=== PATIENT | female | born 1975 | race Caucasian/White ===

== ENCOUNTER → 2016-07-28 | Outpatient (CLI) | payer OTHER ==
[2016-07-28 11:59] LABS: Basophils # (A) 0.1 k/uL (0-0.2); Basophils % (A) 1 %; CH 27.9; CHCM 32.3; Eosinophils # (A) 0.3 k/uL (0-0.7); Eosinophils % (A) 4 %; HCT 41.5 % (34.0-46.0); HDW 2.26; HGB 13.2 gm/dL (11.4-16.0); Luc # (Auto) 0.16; Luc % (Auto) 2; Lymphocytes # (A) 1.5 k/uL (1.0-4.8); Lymphocytes % (A) 17 %; MCH 27.6 pg (25.0-35.0); MCHC 31.9 g/dL (31.0-37.0); MCV 86.7 fL (80.0-100.0); Mean Platelet Volume 6.7; Monocytes # (A) 0.4 k/uL (0-1.0); Monocytes % (A) 5 %; Neutrophils # (A) 6.2 k/uL (1.3-7.7); Neutrophils % (A) 72 %; RBC 4.78 m/uL (3.80-5.40); RDW 14.1 % (11.5-15.5); WBC 8.7 k/uL (3.8-10.6); WBC (Perox) 8.68
[2016-07-28 12:57] LABS: ALT 27 U/L (9-52); AST 23 U/L (14-36); Alkaline Phosphatase 70 U/L (38-126); Anion Gap 8 mmol/L; Blood Urea Nitrogen 19 mg/dL (7-17); Calcium 9.5 mg/dL (8.4-10.2); Carbon Dioxide 28 mmol/L (22-30); Chloride 105 mmol/L (98-107); Glucose 88 mg/dL (74-99); Non-African American GFR(MDRD) >60 (>60 ml/min/1.73 sqM); Potassium 4.3 mmol/L (3.5-5.1); Sodium 141 mmol/L (137-145); Total Bilirubin 0.9 mg/dL (0.2-1.3); Total Protein 7.4 g/dL (6.3-8.2)
[2016-07-28 13:44] LABS: Vitamin B12 383 pg/mL (239-931)
== END | disposition home or self-care (01) ==
LOC: LAB 11:34
PROVIDERS: ATTEND Nurse Practitioner Acute Care
DX: G35 Multiple sclerosis (principal)
CPT/HCPCS: 80053; 82306; 82607; 84439; 84443; 84481; 85025

== ENCOUNTER → 2016-08-14 | Outpatient (CLI) | payer OTHER ==
--- NOTE | 2016-08-14 23:04 | MR ---
EXAMINATION TYPE: MR lumbar wo con DATE OF EXAM: 08/14/2016 2:39 PM COMPARISON: NONE HISTORY: Low back pain, numbness and burning on left side, tingling in feet, legs and hips, MS TECHNIQUE: T1 and T2 axial and sagittal images of the lumbar spine are submitted. FINDINGS: There is no abnormal signal seen within the visualized spinal cord or paraspinal soft tissu es. At L1-2 there is no disc herniation or canal stenosis. No foraminal encroachment. At L2-3 there is no disc herniation or canal stenosis. No foraminal encroachment At L3-4 there is mild circumferential disc bulging with mild bilateral foraminal encroachment. No can al stenosis or focal lesion. At L4-5 there is mild hypertrophic change of the facets and ligamentum flavum but no disc herniation or canal stenosis. Neural foramina patent. At L5-S1 there is mild disc desiccation and degenerative disc disease with mild to moderate facet art hropathy. Mild bilateral foraminal encroachment but no canal stenosis or focal herniation. IMPRESSION: 1. Mild degenerative disc disease L5-S1 with hypertrophic facet changes and mild bilateral foraminal attachment. No focal disc herniation or canal stenosis. 2. Mild circumferential disc bulging L3-L4 with mild bilateral foraminal encroachment. EXAMINATION TYPE: MR cervical spine wo con DATE OF EXAM: 08/14/2016 2:39 PM COMPARISON: 07/22/2014, 03/06/2015 HISTORY: Low back pain, numbness and burning on left side, tingling in feet, legs and hips, MS TECHNIQUE: T1 sagittal and coronal, T2 sagittal, and gradient echo axial views of the cervical spine are submitted. FINDINGS: The cranial cervical junction is preserved. There is abnormal signal within the spinal cor d on the right lateral margin C3 and C3-4. At C2-3 there is no disc herniation or canal stenosis. No foraminal encroachment At C3-4 there is no disc herniation or canal stenosis. No foraminal encroachment At C4-5 there is no disc herniation or canal stenosis. No foraminal encroachment At C5-6 there is mild bilateral uncovertebral joint hypertrophy. There is mild bilateral foraminal en croachment and a central and left paracentral broad-based disc protrusion. At C6-7 there is no disc herniation or canal stenosis. No foraminal encroachment At C7-T1 there is no disc herniation or canal stenosis. No foraminal encroachment IMPRESSION: 1. Abnormal signal at the C3-C4 level right lateral margin of the spinal cord suggestive of myelitis . Faint area of abnormal signal at the C1 level on the right also suspected and suggestive of additio nal area of myelitis 2. Stable bilateral mild foraminal encroachment and central left paracentral broad-based disc protrus ion C5-C6. 3 suggestion of disc bulge sagittal and T2-T3 not included on axial images.
--- NOTE | 2016-08-14 23:05 | MR ---
MRI of the brain with and without contrast HISTORY: MS. COMPARISON: 03/06/2015 TECHNIQUE: T1-weighted sagittal, T2, FLAIR, and diffusion axial, postcontrast T1 axial and coronal vi ews of the brain are submitted. CONTRAST: 20 mL MultiHance FINDINGS: There is no evidence of acute ischemia. The ventricles, basal cisterns, and sulci overlying the co nvexities are consistent with the patient's age. There is no mass effect or enhancing mass. Craniocervical junction maintained. Sella turcica has a normal appearance. No evidence of cerebellopo ntine angle mass. There are moderate to severe changes of chronic sinusitis. WHITE MATTER: There are 7 focal areas of abnormal signal scattered throughout the white matter bilaterally. All alo sure less than 5 mm No lesions perpendicular to the ventricular system. No callosal lesions. There is a 3 mm area of abnormal signal in the right temporal parietal junction which is stable in size but n ow demonstrates interval enhancement. Lesion is new from previous exam. Remaining white matter lesions are stable in size, morphology and number from previous exam. IMPRESSION: 1. There is a single new 3 mm area of abnormal signal within the white matter of the right temporal p arietal junction. It does demonstrate enhancement. Correlate for active demyelinating plaque. 2. Moderate to severe chronic sinusitis.
== END | disposition home or self-care (01) ==
LOC: RADMRIMAIN 13:47
PROVIDERS: ATTEND Psychiatry & Neurology Neurology
DX: M51.26 Other intervertebral disc displacement, lumbar region (principal); M51.37 Other intervertebral disc degeneration, lumbosacral region; M53.86 Other specified dorsopathies, lumbar region; M50.222 Other cervical disc displacement at C5-C6 level; J32.9 Chronic sinusitis, unspecified; R93.0 Abnormal findings on diagnostic imaging of skull and head, not elsewhere classified; Z88.2 Allergy status to sulfonamides; Z88.5 Allergy status to narcotic agent
CPT/HCPCS: 70553; 72141; 72148; A9577

== ENCOUNTER 2018-10-28 21:24 | Emergency (ER) | payer BC, OTHER ==
[2018-10-28] MEDS ORDERED: IBUPROFEN 600 MG TAB PO STA (21:42)
[2018-10-28] MEDS ORDERED: ONDANSETRON 4 MG/2 ML VIAL IVP STA (21:42)
[2018-10-28] MEDS ORDERED: ACETAMINOPHEN TAB 500 MG TAB PO STA (21:42)
[2018-10-28] MEDS ORDERED: methylPREDNISolone SOD SUCC 1,000 MG in SODIUM CHLORIDE 0.9% 250 ML IVPB ONE (22:30)
--- NOTE | 2018-10-28 22:33 | ED ---
Fever HPI - General Chief Complaint: Fever Stated Complaint: MS complications Time Seen by Provider: 10/28/18 21:35 Source: patient Mode of arrival: ambulatory Limitations: no limitations - History of Present Illness Initial Comments: Patient is a 43-year-old female with a history of MS presenting to the emergency department with multiple chief complaints. Patient reports developing a fever approximately 3 days ago but has never checked her actual temperature. Patient reports feeling clammy and has chills. Patient also reports a headache that has developed since yesterday. Patient does report mild nausea but no vomiting or diarrhea. Patient denies any blurry vision. Patient reports mild shortness of breath but denies chest pain, chest tightness or chest palpitations. Patient also reports generalized body aches especially in bilateral lower extremities there is sensitive to palpation. Patient reports during her typical flareups she develops swelling in bilateral knees but states this time the swelling is more unusual. Patient reports taking Tylenol and ibuprofen with minimal improvement.patient reports difficulty swallowing was states that is a chronic issue that originally occurred to 3 months ago. Patient reports decreased u rinary output but denies increased urgency, or dysuria. - Related Data Home Medications Medication Instructions Recorded Confirmed Multivitamins, Thera [Multivitamin] 1 tab PO DAILY 09/17/13 08/06/16 Cetirizine HCl [Zyrtec] 10 mg PO DAILY PRN 08/12/15 08/06/16 Allergies Allergy/AdvReac Type Severity Reaction Status Date / Time adhesive Allergy Mild Rash/Hives Verified 10/28/18 21:34 codeine Allergy Rash/Hives Verified 10/28/18 21:34 Sulfa (Sulfonamide Allergy Rash/Hives Verified 10/28/18 21:34 Antibiotics) trimethobenzamide HCl Allergy Rash/Hives Verified 10/28/18 21:34 [From Tigan] Review of Systems ROS Statement: Those systems with pertinent positive or pertinent negative responses have been documented in the HPI. ROS Other: All systems not noted in ROS Statement are negative. Past Medical History Additional Past Medical History / Comment(s): MULTIPLE SCLEROSIS,MONONUCLEOSIS History of Any Multi-Drug Resistant Organisms: MRSA Date of last positivie culture/infection: 11/10/17 MDRO Source:: NASAL Additional Past Surgical History / Comment(s): SINUS SURGERY Past Anesthesia/Blood Transfusion Reactions: No Reported Reaction Past Psychological History: No Psychological Hx Reported Smoking Status: Former smoker Past Alcohol Use History: None Reported Past Drug Use History: None Reported General Exam Limitations: no limitations General appearance: alert, in no apparent distress Head exam: Present: atraumatic, normocephalic, normal inspection Eye exam: Present: normal appearance, PERRL, EOMI Pupils: Present: normal accommodation ENT exam: Present: normal exam, normal oropharynx, mucous membranes moist, TM's normal bilaterally, normal external ear exam, other Neck exam: Present: normal inspection, full ROM. Absent: tenderness Respiratory exam: Present: normal lung sounds bilaterally Cardiovascular Exam: Present: regular rate, normal rhythm, normal heart sounds GI/Abdominal exam: Present: soft, normal bowel sounds Extremities exam: Present: normal inspection, full ROM, tenderness (Moderate tenderness with palpation in bilateral lower extremities), normal capillary refill, other (+2 dorsalis pedis and posterior tibialis bilaterally. Bilateral knee edema) Back exam: Present: normal inspection, full ROM Neurological exam: Present: alert, oriented X3 Psychiatric exam: Present: normal affect, normal mood Skin exam: Present: warm, intact, normal color Course Vital Signs 10/28/18 10/28/18 10/29/18 21:31 23:03 00:14 Temperature 99.8 F H 98.3 F Pulse Rate 96 68 Respiratory 18 16 16 Rate Blood Pressure 118/79 97/50 O2 Sat by Pulse 96 96 Oximetry Medical Decision Making - Medical Decision Making Patient is a 43-year-old male with history of MS presents to the emergency Department with multiple chief complaints. CBC, CMP and UA unremarkable. Chest x-ray is unremarkable. Based on history and physical examination I suspect the patient to have an acute exacerbation of her MS. I'll low suspicion for infection. Patient was given thousand milligrams of Solu-Medrol. Patient will be prescribed 2 more days of Solu-Medrol. Patient advised to follow-up with primary care for further management of her symptoms. Strict return parameters were thoroughly discussed the patient was understanding and agreeable. Case discussed with physician. - Lab Data Result diagrams: 10/28/18 22:17 10/28/18 22:17 Lab Results 10/28/18 10/28/18 10/29/18 Range/Units 22:17 22:17 00:10 WBC 5.5 (3.8-10.6) k/uL RBC 4.58 (3.80-5.40) m/uL Hgb 12.8 (11.4-16.0) gm/dL Hct 38.5 (34.0-46.0) % MCV 84.0 (80.0-100.0) fL MCH 28.0 (25.0-35.0) pg MCHC 33.4 (31.0-37.0) g/dL RDW 14.3 (11.5-15.5) % Plt Count 343 (150-450) k/uL Neutrophils % 70 % Lymphocytes % 18 % Monocytes % 7 % Eosinophils % 1 % Basophils % 1 % Neutrophils # 3.9 (1.3-7.7) k/uL Lymphocytes # 1.0 (1.0-4.8) k/uL Monocytes # 0.4 (0-1.0) k/uL Eosinophils # 0.1 (0-0.7) k/uL Basophils # 0.0 (0-0.2) k/uL Sodium 137 (137-145) mmol/L Potassium 3.8 (3.5-5.1) mmol/L Chloride 103 (98-107) mmol/L Carbon Dioxide 22 (22-30) mmol/L Anion Gap 12 mmol/L BUN 19 H (7-17) mg/dL Creatinine 1.08 H (0.52-1.04) mg/dL Est GFR (CKD-EPI)AfAm 72 (>60 ml/min/1.73 sqM) Est GFR (CKD-EPI)NonAf 63 (>60 ml/min/1.73 sqM) Glucose 94 (74-99) mg/dL Calcium 9.3 (8.4-10.2) mg/dL Total Bilirubin 1.0 (0.2-1.3) mg/dL AST 23 (14-36) U/L ALT 19 (9-52) U/L Alkaline Phosphatase 75 (38-126) U/L Total Protein 7.3 (6.3-8.2) g/dL Albumin 4.1 (3.5-5.0) g/dL Urine Color Yellow Urine Appearance Clear (Clear) Urine pH 5.5 (5.0-8.0) Ur Specific [place] 1.014 (1.001-1.035) Urine Protein Negative (Negative) Urine Glucose (UA) Negative (Negative) Urine Ketones 2+ H (Negative) Urine Blood Negative (Negative) Urine Nitrite Negative (Negative) Urine Bilirubin Negative (Negative) Urine Urobilinogen <2.0 (<2.0) mg/dL Ur Leukocyte Esterase Negative (Negative) Disposition Clinical Impression: Multiple sclerosis exacerbation Disposition: HOME SELF-CARE Condition: Stable Instructions (If sedation given, give patient instructions): Multiple Sclerosis (DC) Additional Instructions: Please go to the outpatient treatment center for administration of Solu-Medrol f or the next 2 days. Please return to emergency department if symptoms worsen. Please follow up with primary care. Is patient prescribed a controlled substance at d/c from ED?: No Referrals: None,Stated [Primary Care Provider] - 1-2 days Time of Disposition: 00:42
--- NOTE | 2018-10-28 22:37 | XR ---
EXAM: XR Chest, 2 Views CLINICAL HISTORY: ITS.REASON XR Reason: Cough/pain TECHNIQUE: Frontal and lateral views of the chest. COMPARISON: No relevant prior studies available. FINDINGS: Lungs: Unremarkable. No consolidation. Pleural space: Unremarkable. No pneumothorax. Heart: Unremarkable. No cardiomegaly. Mediastinum: Unremarkable. Bones/joints: Unremarkable. IMPRESSION: Normal chest x-rays.
[2018-10-28 22:40] LABS: Basophils % (A) 1 %; Eosinophils # (A) 0.1 k/uL (0-0.7); Eosinophils % (A) 1 %; HCT 38.5 % (34.0-46.0); HGB 12.8 gm/dL (11.4-16.0); Lymphocytes % (A) 18 %; MCHC 33.4 g/dL (31.0-37.0); Mean Platelet Volume 7.3; Monocytes # (A) 0.4 k/uL (0-1.0); Monocytes % (A) 7 %; Neutrophils # (A) 3.9 k/uL (1.3-7.7); Neutrophils % (A) 70 %; Platelet Count 343 k/uL (150-450); RBC 4.58 m/uL (3.80-5.40); RDW 14.3 % (11.5-15.5); WBC 5.5 k/uL (3.8-10.6)
[2018-10-28 22:54] LABS: Albumin 4.1 g/dL (3.5-5.0); Calcium 9.3 mg/dL (8.4-10.2); Potassium 3.8 mmol/L (3.5-5.1); Total Protein 7.3 g/dL (6.3-8.2)
[2018-10-29 00:26] LABS: Appearance,Urine Clear (Clear); Bilirubin,Urine Negative (Negative); Blood,Urine Negative (Negative); Color,Urine Yellow; Glucose,Urine (UA) Negative (Negative); Ketones,Urine 2+ (Negative); Leukocyte Esterase,Urine Negative (Negative); Nitrite,Urine Negative (Negative); PH, Urine 5.5 (5.0-8.0); Protein,Urine Negative (Negative); Specific Gravity,Urine 1.014 (1.001-1.035); Urobilinogen,Urine <2.0 mg/dL (<2.0)
[2018-10-29 01:49] VITALS: BP 123/78; PULSE 82; RESP 18; TEMP 97.9
== END 2018-10-29 01:49 | disposition home or self-care (01) ==
LOC: EC 21:24
DX: G35 Multiple sclerosis (principal); Z88.2 Allergy status to sulfonamides; Z88.5 Allergy status to narcotic agent; Z88.8 Allergy status to other drugs, medicaments and biological substances; Z91.048 Other nonmedicinal substance allergy status; Z87.891 Personal history of nicotine dependence
CPT/HCPCS: 36415; 80053; 85025; 81003; 71046; 99283; 96365; 96366 ×2; 96375; J2405; J2930

== ENCOUNTER → 2019-01-16 | Outpatient (CLI) | payer OTHER ==
[2019-01-16 14:20] LABS: Basophils # (A) 0.1 k/uL (0-0.2); Basophils % (A) 1 %; Eosinophils # (A) 0.4 k/uL (0-0.7); Eosinophils % (A) 5 %; HCT 39.4 % (34.0-46.0); HGB 13.1 gm/dL (11.4-16.0); Lymphocytes % (A) 27 %; MCH 28.6 pg (25.0-35.0); MCHC 33.2 g/dL (31.0-37.0); MCV 86.2 fL (80.0-100.0); Mean Platelet Volume 6.3; Monocytes # (A) 0.4 k/uL (0-1.0); Monocytes % (A) 5 %; Neutrophils # (A) 4.4 k/uL (1.3-7.7); Neutrophils % (A) 60 %; Platelet Count 399 k/uL (150-450); RBC 4.57 m/uL (3.80-5.40); RDW 12.8 % (11.5-15.5); WBC 7.3 k/uL (3.8-10.6)
[2019-01-16 18:46] LABS: African American GFR (CKD) 122.1 (60.0-200.0); Albumin 4.4 g/dL (3.80-4.90); Albumin/Globulin Ratio 1.83 (1.60-3.17); Anion Gap 9.5 mmol/L (4.00-12.00); BUN/Creat Ratio 22.86 Ratio (12.00-20.00); Calcium 9.5 mg/dL (8.7-10.3); Carbon Dioxide 27.5 mmol/L (21.6-31.8); Globulin 2.4 g/dL (1.6-3.3); Potassium 4.5 mmol/L (3.5-5.5); Total Bilirubin 1.1 mg/dL (0.2-1.2); Total Protein 6.8 g/dL (6.2-8.2)
[2019-01-16 18:47] LABS: Vitamin D 25 Hydroxy 24.7 ng/mL (30.0-100.0)
[2019-01-16 19:13] LABS: Hepatitis B Surface Antibody Reactive (Non-Reactive); Hepatitis B Surface Antigen Non-Reactive (Non-Reactive)
[2019-01-16 21:11] LABS: Hepatitis B Core IgM Non-Reactive (Non-Reactive)
== END | disposition home or self-care (01) ==
LOC: LABWHC1 13:00
PROVIDERS: ATTEND Nurse Practitioner Acute Care
DX: G35 Multiple sclerosis (principal); E55.9 Vitamin D deficiency, unspecified
CPT/HCPCS: 36415; 80053; 82306; 82607; 84207; 85025; 86704; 86705; 86706; 86787; 87340

== ENCOUNTER → 2022-02-24 | Outpatient (CLI) | payer BC, OTHER ==
--- NOTE | 2022-02-24 09:43 | MM ---
Reason for Exam: Clinical finding. Last mammogram was performed 7 year(s) and 6 month(s) ago. Patient History: Menarche at age 8. First Full-Term at age 20. Last menstrual period: 01/02/2022 Risk Values: [place] 5 year model risk: 0.9%. NCI Lifetime model risk: 9.2%. Tissue Density: There are scattered fibroglandular densities. Findings: Analyzed By CAD. No distinct evidence for mass at the site of clinical concern or distortion. No suspicious calcifications. Overall Assessment: Incomplete: need additional imaging evaluation, BI-RAD 0 Management: Diagnostic Breast Ultrasound of the left breast. A clinical breast exam by your physician is recommended on an annual basis and results should be correlated with mammographic findings. This exam should not preclude additional follow-up of suspicious palpable abnormalities. Results were given to the patient verbally at the time of exam. Electronically signed and approved by: Evan Williamson M.D. Radiologis
--- NOTE | 2022-02-24 10:19 | US ---
EXAMINATION TYPE: US pelvis complete transvag DATE OF EXAM: 02/24/2022 COMPARISON: NONE CLINICAL HISTORY: N926 IRREGULAR MENSTRUATION. Ongoing menstruation for 2 months TECHNIQUE: . Transabdominal sonographic images of the pelvis were acquired. Transvaginal sonographi c images were medically necessary to better assess the following anatomy: Date of LMP: 02/11/2022 EXAM MEASUREMENTS: Uterus: 9.6 x 5.3 x 6.6 cm Endometrial Stripe: 1.3 cm Right Ovary: 3.9 x 3.5 x 3.1 cm Left Ovary: 2.3 x 1.7 x 1.4 cm 1. Uterus: Anteverted Hypoechoic mass right mid uterus 1.8 x 2.0 x 1.5cm. 2. Endometrium: wnl 3. Right Ovary: Anechoic mass 2.7 x 2.6 x 2.7cm 4. Left Ovary: wnl 5. Bilateral Adnexa: wnl 6. Posterior cul-de-sac: wnl IMPRESSION: 1. Probable leiomyomatous change of the uterus. 2. Simple cyst right ovary
--- NOTE | 2022-02-24 10:29 | USB ---
Reason for Exam: Clinical finding. Patient History: Menarche at age 8. First Full-Term at age 20. Risk Values: Catr[place]ita 5 year model risk: 0.9%. NCI Lifetime model risk: 9.2%. Prior Study Comparison: 08/02/2014 Bilateral Diagnostic Mammogram, [facility]. Findings: The upper outer quadrant of the left breast, the axilla of the left breast and the retroareolar of the left breast were scanned. No solid or cystic masses are identified.. Overall Assessment: Negative, BI-RAD 1 Management: Screening Mammogram of both breasts in 1 year. A clinical breast exam by your physician is recommended on an annual basis and results should be correlated with mammographic findings. This exam should not preclude additional follow-up of suspicious palpable abnormalities. Results were given to the patient verbally at the time of exam. Electronically signed and approved by: Evan Williamson M.D. Radiologis
== END | disposition home or self-care (01) ==
LOC: RADMAMWWP 08:54
PROVIDERS: ATTEND Family Medicine
DX: N83.201 Unspecified ovarian cyst, right side (principal); N63.23 Unspecified lump in the left breast, lower outer quadrant; N92.6 Irregular menstruation, unspecified
CPT/HCPCS: 76830; 76856; 77062; 77066

== ENCOUNTER → 2024-08-23 | Outpatient (CLI) | payer BC ==
[2024-08-23 20:17] LABS: Protein, Total 7.7 g/dL (6.2-8.2)
[2024-08-23 20:36] LABS: Hepatitis A Antibody IgM Nonreactive (Nonreactive); Hepatitis B Core IgM Nonreactive (Nonreactive); Hepatitis B Surface Antigen Nonreactive (Nonreactive); Hepatitis C IgG Antibody Nonreactive (Nonreactive)
[2024-08-23 21:24] LABS: HIV 2 AB Non-Reactive (Non-Reactive); HIV AB P24 Non-Reactive (Non-Reactive); HIV P24 AG Non-Reactive (Non-Reactive)
[2024-08-23 21:29] LABS: Cyclic Citrull Pep IgG Unit <1.5 U/mL (<=3.9); Cyclic Citrullinated Pep IgG Negative
[2024-08-24 00:14] LABS: Blood Urea Nitrogen 18.4 mg/dL (9.0-27.0); Creatine Kinase 75 U/L (26-186); Rheumatoid Factor, Qnt <15 IU/mL (0-15)
[2024-08-24 13:41] LABS: HIV-1 RNA Not detected (Not detected); HIV-1 RNA, Quant <20 Copies/mL (<20); LOG HIV Copies/mL <1.30 (<1.30)
== END | disposition home or self-care (01) ==
LOC: LABWHC1 16:18
PROVIDERS: ATTEND Psychiatry & Neurology Neurology
DX: Z51.81 Encounter for therapeutic drug level monitoring (principal); G35 Multiple sclerosis; Z79.899 Other long term (current) drug therapy
CPT/HCPCS: 36415; 80074; 82550; 82565; 82607; 84165; 84520; 84550; 85652; 86140; 86200; 86334; 86431; 86480; 86787; 87390; 87536

== ENCOUNTER → 2024-09-23 | Outpatient (CLI) | payer BC ==
--- NOTE | 2024-09-23 12:22 | MR ---
EXAMINATION TYPE: MR cspine/tspine wo/w con DATE OF EXAM: 09/23/2024 11:58 AM CLINICAL INDICATION: Female, 49 years old with history of G35 MULTIPLE SCLEROSIS, Dizzy, tripping, he adaches, weakness both arms, Hx MS, Mid back pain, IV Contrast: 11.5 cc Gadobutrol (None if empty) MRI cervical spine: COMPARISON: 08/14/2016 TECHNIQUE: Multiplanar, multisequence images of the cervical spine is performed without and with IV contrast, ut ilizing 11.5 mL intravenous Gadobutrol FINDINGS: Craniovertebral junction relationship some prevertebral soft tissues are normal. The cervical vertebral segments are normal in height and alignment is no fracture or subluxation. The C2-3, C3-4, C4-5 and C6-7 intervertebral discs are well preserved in height without significant d isc degeneration or herniation. There is mild degenerative disease at C5-6 level where there is mild disc space narrowing, circumfere ntial disc bulge and spondylosis. Mild posterior disc bulge results in mild mass effect on the ventra l aspect of thecal sac. There is no cervical stenosis in the cervical cord is normal in size and signal intensity. Following contrast administration, there is no pathological enhancement. There are no paraspinal soft tissue masses or fluid collections. There is mild neural foraminal stenosis at C5-6 on the left secondary to mild degeneration of the unc overtebral joint. IMPRESSION: 1. Normal cervical cord with no abnormal signal intensity or pathological enhancement. There is no ce rvical stenosis. 2. Mild degenerative disc disease at C5-6 and mild neural foraminal stenosis at C5-6 on the left.. MRI thoracic spine. HISTORY: Multiple sclerosis. Back pain. Comparison: 03/07/2015 TECHNIQUE: Multiecho multiplanar images of thoracic spine were obtained with and without contrast. Findings: The thoracic vertebral segments are normal in height and alignment there is no fracture or subluxatio n. At the T5-6 level there is a left paracentral posterior disc spur complex causing mild to moderate mass effect on the left anterolateral aspect of the thecal sac. At T7-8 level there is bilateral par acentral disc spur complexes resulting in moderate mass effect on the right and left anterolateral as pects of the thecal sac. There is no thoracic spinal stenosis. At the T1-2 level, there is a small focal area of abnormal increased signal intensity in the left asp ect of the thoracic cord consistent with the small demyelinating plaque. Following contrast administration there is no pathological enhancement throughout the cervical cord o r paraspinal soft tissues. IMPRESSION: 1. Interval development of a tiny focal abnormality in the left aspect of the thoracic cord at the T1 /T2 level consistent with a demyelinating plaque. There is no pathological enhancement to suggest acu te activity. 2. Stable posterior disc spur complexes at T5-6 on the left and bilaterally at T7-8 as described sofia bain [facility], , 09/23/2024 12:19 PM
== END | disposition home or self-care (01) ==
LOC: RADMRIMAIN 10:22
PROVIDERS: ATTEND Psychiatry & Neurology Neurology
DX: G35 Multiple sclerosis (principal); M50.322 Other cervical disc degeneration at C5-C6 level; M48.02 Spinal stenosis, cervical region; M51.34 Other intervertebral disc degeneration, thoracic region
CPT/HCPCS: 72156; 72157; A9585

== ENCOUNTER → 2024-09-28 | Outpatient (CLI) | payer BC ==
--- NOTE | 2024-09-29 12:24 | MR ---
EXAMINATION TYPE: MR brain wo/w con DATE OF EXAM: 09/28/2024 9:07 PM COMPARISON: 08/14/2016. CLINICAL INDICATION: Female, 49 years old with history of G35 MS compare to prior; PHH, MS, new dizzi ness, headaches and tripping. please compare to prior TECHNIQUE: Multi planar, multi sequence imaging was performed through the brain including: T1, T2, In version recovery, susceptibility weighted imaging and gradient echo imaging and Diffusion weighted im aging. The patient was then given intravenous contrast and multi planar, T1 fat-saturation images wer e obtained. IV Contrast: 11.5 mL Gadobutrol FINDINGS: Few scattered white matter changes identified not significantly changed from prior 7. The patel-white junctions, ventricular system, basal cisterns appear unremarkable. Diffusion-weighted imaging shows no evidence of restricted diffusion to suggest acute/subacute infarct. Intracranial ar terial flow voids are maintained. Midline structures show no abnormality. The susceptibility weighted images do not reveal any evidence for micro-hemorrhage. After administration of gadolinium, no abnor mal enhancement is seen. The bone marrow signal is within normal limits. Paranasal sinuses and mastoid air cells: Mild scattered paranasal sinus disease. Visualized orbits: Orbital contents are intact. IMPRESSION: No evidence for active demyelination. Scattered white matter changes which are stable. No evidence of intracranial mass, acute/subacute infarct, or abnormal enhancement. [facility], , 09/29/2024 12:22 PM
== END | disposition home or self-care (01) ==
LOC: RADMRIMAIN 20:30
PROVIDERS: ATTEND Psychiatry & Neurology Neurology
DX: G35 Multiple sclerosis (principal)
CPT/HCPCS: 70553; A9585